=== PATIENT | female | born 1995 | race African-American/Black ===

== ENCOUNTER 2021-12-10 09:12 | Emergency (ER) | payer OTHER ==
[~2021-12-10] VITALS: Ht 154.9 cm; Wt 80.7 kg
== END 2021-12-10 14:41 | disposition home or self-care (01) ==
LOC: ER 09:12
DX: U07.1 COVID-19 (principal); Z91.048 Other nonmedicinal substance allergy status

== ENCOUNTER 2022-03-15 03:15 | Emergency (ER) | payer OTHER ==
[~2022-03-15] VITALS: Ht 157.5 cm; Wt 85.3 kg
== END 2022-03-15 05:49 | disposition home or self-care (01) ==
LOC: ER 03:15 → EMR PED 03:26 → ER 03:26 → EMR PED 05:49
DX: N94.6 Dysmenorrhea, unspecified (principal)

== ENCOUNTER 2022-05-07 00:54 | Emergency (ER) | payer OTHER ==
[~2022-05-07] VITALS: Ht 157.5 cm; Wt 81.6 kg
[2022-05-07] MEDS ORDERED: DOLOGESIC-DF 51 EACH PO (05:24)
== END 2022-05-07 05:39 ==
LOC: ER 00:54
DX: R51.9 Headache, unspecified (principal)

== ENCOUNTER 2022-10-20 10:50 | Emergency (ER) | payer OTHER ==
[~2022-10-20] VITALS: Ht 157.5 cm; Wt 86.2 kg
[~2022-10-20 10:50] MED LIST: DOLOGESIC-DF 51 EACH PO
[2022-10-20] MEDS ORDERED: PEPCID20 MG PO (16:01)
[2022-10-20] MEDS ORDERED: ZOFRAN8 MG PO (16:01)
== END 2022-10-20 16:05 | disposition home or self-care (01) ==
LOC: ER 10:50
DX: R10.9 Unspecified abdominal pain (principal); R10.2 Pelvic and perineal pain; R11.10 Vomiting, unspecified; Z91.09 Other allergy status, other than to drugs and biological substances
CPT/HCPCS: 36415; 74177; Q9965

== ENCOUNTER 2022-10-29 02:17 | Emergency (ER) | payer OTHER ==
[~2022-10-29] VITALS: Ht 157.5 cm; Wt 84.8 kg
[~2022-10-29 02:17] MED LIST changes: +PEPCID20 MG PO; +ZOFRAN8 MG PO
[2022-10-29] MEDS ORDERED: KETO10TA2 PO (04:29)
== END 2022-10-29 04:42 | disposition home or self-care (01) ==
LOC: ER 02:17
DX: R10.2 Pelvic and perineal pain (principal)

== ENCOUNTER 2023-01-05 13:25 | Emergency (ER) | payer OTHER ==
[~2023-01-05] VITALS: Ht 157.5 cm; Wt 81.6 kg
[~2023-01-05 13:25] MED LIST changes: +KETO10TA2 PO
[2023-01-05 16:49] LABS: HEMATOCRIT 42.9 % (36.0-45.00); HEMOGLOBIN 13.8 g/dL (12.0-15.00); MEAN CELL VOLUME 79.3 fL (80.00-100.00); MEAN CORPUSCULAR HEMOGLOBIN 25.4 pg (27.00-32.0); MEAN CORPUSCULAR HGB CONC 32.1 g/dl (32.0-36.0); PLATELET COUNT 463 K/uL (150-450); RED BLOOD COUNT 5.41 M/uL (4.00-6.00); RED CELL DISTRIBUTION WIDTH 14.1 % (11.5-14.5)
[2023-01-05 17:13] LABS: BILIRUBIN TOTAL 0.49 mg/dL (0.3-1.2); CALCIUM 9.3 mg/dL (8.5-10.1); CREATININE SERUM 0.71 mg/dL (0.55-1.02); GFR 98.75; GLOBULINA 4.6 G/DL (2.4-3.5); TOTAL PROTEIN 8.6 gm/dL (6.4-8.2)
== END 2023-01-05 21:23 | disposition home or self-care (01) ==
LOC: ER 13:25
PROVIDERS: General Practice
DX: A09 Infectious gastroenteritis and colitis, unspecified (principal); R10.9 Unspecified abdominal pain; Z91.018 Allergy to other foods

== ENCOUNTER 2023-03-19 01:23 | Emergency (ER) | payer OTHER ==
[~2023-03-19] VITALS: Ht 157.5 cm; Wt 86.6 kg
[2023-03-19 04:02] LABS: HEMATOCRIT 37.6 % (36.0-45.00); HEMOGLOBIN 12.2 g/dL (12.0-15.00); MEAN CELL VOLUME 78.9 fL (80.00-100.00); MEAN CORPUSCULAR HEMOGLOBIN 25.6 pg (27.00-32.0); MEAN CORPUSCULAR HGB CONC 32.4 g/dl (32.0-36.0); PLATELET COUNT 404 K/uL (150-450); RED BLOOD COUNT 4.77 M/uL (4.00-6.00); RED CELL DISTRIBUTION WIDTH 13.9 % (11.5-14.5)
[2023-03-19 04:12] LABS: URINE BILIRRUBIN NEGATIVE (NEGATIVE); URINE BLOOD MODERATE; URINE GLUCOSE NEGATIVE (NEGATIVE); URINE LEUKOCYTE NEGATIVE; URINE NITRATE NEGATIVE; URINE PROTEIN NEGATIVE (NEGATIVE); URINE UROBILINOGEN 0.2 E.U./dl
[2023-03-19 04:14] LABS: ANION GAP 9 (10.0-20.0); BLOOD UREA NITROGEN 16 mg/dL (7-18); BUN CREA RATIO 22 (7.0-25.0); CALCIUM 8.7 mg/dL (8.5-10.1); CARBON DIOXIDE 27 mEq/L (21-32); CHLORIDE 106 mmol/L (98-107); CREATININE SERUM 0.72 mg/dL (0.55-1.02); GFR 96.45; GLUCOSE FASTING 93 mg/dL (65-100); OSMOLALITY SERUM 277 MOSM/KG (275-295); POTASSIUM 3.93 mEq/L (3.5-5.1); SODIUM 138 mmol/L (136-145)
[2023-03-19 04:19] LABS: HCG QUANTITATIVE < 1 mUI/mL (1-3)
[2023-03-19 04:35] LABS: URINE APPEARANCE CLEAR; URINE BACTERIA MODERATE; URINE COLOR YELLOW; URINE EPITHELIAL CELLS 0-4 /HPF; URINE RBC 0-3 /HPF; URINE WBC 0-2 /hpf
[2023-03-19] MEDS ORDERED: DOLOGESIC-DF 51 EACH PO (04:54)
== END 2023-03-19 05:08 ==
LOC: ER 01:23
PROVIDERS: General Practice
DX: R51.9 Headache, unspecified (principal); R42 Dizziness and giddiness; Z91.018 Allergy to other foods

== ENCOUNTER 2023-03-31 09:12 | Emergency (ER) | payer OTHER ==
[~2023-03-31] VITALS: Ht 157.5 cm; Wt 86.2 kg
== END 2023-03-31 15:25 | disposition home or self-care (01) ==
LOC: ER 09:12
DX: R60.0 Localized edema (principal); M79.605 Pain in left leg; Z91.048 Other nonmedicinal substance allergy status

== ENCOUNTER 2023-06-13 01:43 | Emergency (ER) | payer OTHER ==
[~2023-06-13] VITALS: Ht 157.5 cm; Wt 86.2 kg
[2023-06-13] MEDS ORDERED: KETOROLAC TROMETHAMINE 60 MG VIAL IM STA (09:34)
== END 2023-06-13 10:04 | disposition home or self-care (01) ==
LOC: ER 01:43
DX: S93.69 Other sprain of foot (principal); Z91.81 History of falling

== ENCOUNTER 2024-08-18 14:19 | Emergency (ER) | payer OTHER ==
[~2024-08-18] VITALS: Ht 157.5 cm; Wt 85.3 kg
[2024-08-18 14:31] VITALS: BP 100/60; O2SAT 99
[2024-08-18] MEDS ORDERED: AZITHROMYCIN 500 MG TABLET PO ONE ×2 (16:15→16:17)
[2024-08-18] MEDS ORDERED: DEXAMETHASONE SODIUM PHOSPHATE 4 MG/ML VIAL IM ONE (16:15)
[2024-08-18] MEDS ORDERED: GUAIFENESIN/DEXTROMETHORPHAN 100MG/10ML BLIST.PACK PO ONE (16:15)
[2024-08-18] MEDS ORDERED: KETOROLAC TROMETHAMINE 60 MG VIAL IM ONE ×2 (16:15→16:17)
[2024-08-18] MEDS ORDERED: GUAIFEN/DEXTROMETHORPHAN/PE 10 ML BLIST.PACK PO ONE (16:17)
[2024-08-18] MEDS ORDERED: DEXAMETHASONE SODIUM PHOSPHATE 4 MG/ML VIAL ONE (16:17)
[2024-08-18 16:36] LABS: BASO % 0.3 % (0.1-1.2); EOS # 0.56 (0.04-0.54); EOS % 3.9 % (0.7-7.0); HEMATOCRIT 38.7 % (34.1-44.9); HEMOGLOBIN 12.5 g/dL (11.2-15.7); LYMPH # 4.16 (1.18-3.74); LYMPH % 28.7 % (19.3-53.1); MEAN CORPUSCULAR HEMOGLOBIN 25.1 pg (25.6-32.2); MONO # 1.09 (0.24-0.82); MONO % 7.5 % (4.7-12.5); NEUT # 8.59 (1.56-6.13); NEUT % 59.3 % (34.0-71.1); PLATELET COUNT 438 K/uL (163-369); RED BLOOD COUNT 4.99 M/uL (3.93-5.22); RED CELL DISTRIBUTION WIDTH 13.6 % (11.6-14.4)
[2024-08-18 18:21] LABS: INFLUENZA A AG NEGATIVE (NEGATIVE)
[2024-08-18 18:31] LABS: COVID-19 AG POSITIVE (NEGATIVE)
[2024-08-18] MEDS ORDERED: PAXLOVID 300-11 EAC1 PO (18:39)
[2024-08-18] MEDS ORDERED: DOLOGEN CAPLET1 EACH PO (18:39)
[2024-08-18] MEDS ORDERED: TUSNEL LIQUID178 ML PO (18:39)
== END 2024-08-18 19:07 | disposition home or self-care (01) ==
LOC: ER 14:19
PROVIDERS: General Practice
DX: U07.1 COVID-19 (principal); Z88.8 Allergy status to other drugs, medicaments and biological substances

== ENCOUNTER 2024-08-23 17:49 | Emergency (ER) | payer OTHER ==
[~2024-08-23] VITALS: Ht 157.5 cm; Wt 90.7 kg
[~2024-08-23 17:49] MED LIST changes: +DOLOGEN CAPLET1 EACH PO; +PAXLOVID 300-11 EAC1 PO; +TUSNEL LIQUID178 ML PO
[2024-08-23] MEDS ORDERED: ONDANSETRON HCL 2 MG/ML VIAL IV STA (18:57)
[2024-08-23] MEDS ORDERED: 0.9 % SODIUM CHLORIDE 1,000 ML IV STA (18:57)
[2024-08-23] MEDS ORDERED: ONDANSETRON HCL 2 MG/ML VIAL ONE (19:08)
[2024-08-23 20:01] LABS: HEMATOCRIT 41.5 % (34.1-44.9); HEMOGLOBIN 13.3 g/dL (11.2-15.7); MEAN CORPUSCULAR HEMOGLOBIN 24.6 pg (25.6-32.2); PLATELET COUNT 543 K/uL (163-369); RED BLOOD COUNT 5.41 M/uL (3.93-5.22); RED CELL DISTRIBUTION WIDTH 13.2 % (11.6-14.4)
[2024-08-23 20:02] LABS: BASO % 0.2 % (0.1-1.2); EOS # 0.43 (0.04-0.54); EOS % 2.8 % (0.7-7.0); LYMPH # 3.06 (1.18-3.74); LYMPH % 19.9 % (19.3-53.1); MONO # 0.78 (0.24-0.82); MONO % 5.1 % (4.7-12.5); NEUT # 11.01 (1.56-6.13); NEUT % 71.4 % (34.0-71.1)
[2024-08-23 20:14] LABS: CREATININE SERUM 0.68 mg/dL (0.55-1.02); GFR 102.29; POTASSIUM 3.94 mEq/L (3.5-5.1)
== END 2024-08-23 22:39 | disposition home or self-care (01) ==
LOC: ER 17:56
PROVIDERS: Emergency Medicine
DX: K52.89 Other specified noninfective gastroenteritis and colitis (principal); K76.89 Other specified diseases of liver; Z88.8 Allergy status to other drugs, medicaments and biological substances; Z91.048 Other nonmedicinal substance allergy status

== ENCOUNTER 2025-03-28 22:49 | Emergency (ER) | payer OTHER ==
[~2025-03-28] VITALS: Ht 157.5 cm; Wt 90.7 kg
[2025-03-28] MEDS ORDERED: METHYLPREDNISOLONE SOD SUCC 125 MG VIAL ONE (22:59)
[2025-03-28] MEDS ORDERED: METHYLPREDNISOLONE SOD SUCC 125 MG VIAL IV ONE (23:00)
[2025-03-28] MEDS ORDERED: IPRATROPIUM/ALBUTEROL SULFATE 3 ML AMPUL.NEB IH SCH (23:00)
[2025-03-28] MEDS ORDERED: IPRATROPIUM/ALBUTEROL SULFATE 3 ML AMPUL.NEB IH ONE ×2 (23:07→23:28)
[2025-03-28 23:33] LABS: BASO % 0.3 % (0.1-1.2); EOS # 0.84 (0.04-0.54); EOS % 5.8 % (0.7-7.0); LYMPH # 5.96 (1.18-3.74); LYMPH % 40.8 % (19.3-53.1); MEAN PLATELET VOLUME 10.20 fl (9.4-12.4); MONO # 1.14 (0.24-0.82); MONO % 7.8 % (4.7-12.5); NEUT # 6.58 (1.56-6.13); NEUT % 45.0 % (34.0-71.1); RED CELL DISTRIBUTION WIDTH 13.8 % (11.6-14.4)
[2025-03-29 00:02] LABS: ALT/SGPT 40.0 U/L (12-78); AST/SGOT 22.0 U/L (15-37); BILIRUBIN TOTAL 0.21 mg/dL (0.3-1.2); BUN CREA RATIO 11.0 (7.0-25.0); CREATININE SERUM 0.64 mg/dL (0.55-1.02); GFR 108.96; GLOBULINA 4.4 G/DL (2.4-3.5); GLUCOSE FASTING 109.0 mg/dL (65-100); OSMOLALITY SERUM 278.0 MOSM/KG (275-295)
[2025-03-29 00:09] LABS: ERYTHROCYTE SEDIMENTATION RATE 33 mm/hr (0-20)
[2025-03-29 00:38] LABS: COVID-19 AG NEGATIVE (NEGATIVE)
[2025-03-29] MEDS ORDERED: 0.9 % SODIUM CHLORIDE 1,000 ML IV SCH (01:00)
[2025-03-29] MEDS ORDERED: MAGNESIUM SULFATE 50% 1,000 MG/2 ML VIAL ONE (01:16)
[2025-03-29] MEDS ORDERED: MAGNESIUM SULFATE/D5W 1GM/100ML PIGGYBAG IV ONE (01:30)
[2025-03-29] MEDS ORDERED: BUDESONIDE0.5 MG/2 M IH (05:36)
[2025-03-29] MEDS ORDERED: ZITHROMAX500 MG PO ×2 (05:36→05:38)
[2025-03-29] MEDS ORDERED: ALBUTEROL2.5 MG/3 M IH (05:36)
[2025-03-29] MEDS ORDERED: ZYNCOF 20-400120 ML PO ×2 (05:37→05:38)
== END 2025-03-29 05:42 | disposition home or self-care (01) ==
LOC: ER 22:49
PROVIDERS: Student in an Organized Health Care Education/Training Program
DX: J45.41 Moderate persistent asthma with (acute) exacerbation (principal); J40 Bronchitis, not specified as acute or chronic; Z20.822 Contact with and (suspected) exposure to COVID-19; Z91.048 Other nonmedicinal substance allergy status

== ENCOUNTER → 2025-04-03 | Emergency (ER) | payer OTHER ==
[~2025-04-03] VITALS: Ht 157.5 cm; Wt 92.5 kg
[~2025-04-03] MED LIST changes: +ACETAMINOPHEN 500 MG GEL..CAP PO ONE; +ALBUTEROL2.5 MG/3 M IH; +BENZONATATE 100 MG CAPSULE PO ONE; +BUDESONIDE0.5 MG/2 M IH; +GUAIFENESIN 200 MG/10 ML BLIST.PACK PO ONE; +IPRATROPIUM BROMIDE 0.5 MG/2.5 ML AMPUL.NEB IH SCH; +LEVALBUTEROL HCL 1.25 MG/3 ML SOLUTION IH SCH; +METHYLPREDNISOLONE SOD SUCC 125 MG VIAL IV ONE; +ZITHROMAX500 MG PO; +ZYNCOF 20-400120 ML PO
[2025-04-03 10:08] VITALS: BP 134/79; O2SAT 100
[2025-04-03 13:24] LABS: BASO % 0.3 % (0.1-1.2); EOS # 0.66 (0.04-0.54); EOS % 4.1 % (0.7-7.0); LYMPH # 5.22 (1.18-3.74); LYMPH % 32.7 % (19.3-53.1); MEAN PLATELET VOLUME 9.80 fl (9.4-12.4); MONO # 1.01 (0.24-0.82); MONO % 6.3 % (4.7-12.5); NEUT # 8.95 (1.56-6.13); NEUT % 56.0 % (34.0-71.1); RED CELL DISTRIBUTION WIDTH 14.0 % (11.6-14.4)
[2025-04-03 13:41] LABS: COVID-19 AG NEGATIVE (NEGATIVE)
== END | disposition home or self-care (01) ==
LOC: ER 09:03
PROVIDERS: General Practice
DX: J98.8 Other specified respiratory disorders (principal); J45.998 Other asthma; Z20.822 Contact with and (suspected) exposure to COVID-19; Z91.048 Other nonmedicinal substance allergy status